=== PATIENT | female | born 1990 | race Two or more races ===

== ENCOUNTER 2022-03-03 08:14 | Emergency (ER) | payer SELFPAY ==
[~2022-03-03] VITALS: Ht 154.9 cm; Wt 63.0 kg
[2022-03-03] MEDS ORDERED: LIDOCAINE (700MG/PATCH) PATCH. TD ONE (08:45)
[2022-03-03] MEDS ORDERED: METHOCARBAMOL 750 MG TABLET PO PRN (08:45)
[2022-03-03] MEDS ORDERED: HYDROcodone/APAP 5/325MG 1 TAB TABLET PO ONE (08:45)
[2022-03-03] MEDS ORDERED: MORPHINE SULFATE 4 MG/ML INJ. IM ONE (08:45)
[2022-03-03] MEDS ORDERED: KETOROLAC 30 MG/ML VIAL. INJ ONE (09:00)
[2022-03-03 09:31] LABS: BASO % 0 % (0-3); EOS # 0.1 x10^3/uL (0.0-0.7); EOS % 1 % (0-3); HEMATOCRIT 44.5 % (36.0-47.0); HEMOGLOBIN 14.7 g/dL (12.0-15.5); LYMPH # 1.9 x10^3/uL (1.0-4.8); LYMPH % 24 % (24-48); MEAN CORPUSCULAR HEMOGLOBIN 30 pg (25-35); MEAN CORPUSCULAR HGB CONC 33 g/dL (31-37); MEAN CORPUSCULAR VOLUME 91 fL (79-100); MONO # 0.4 x10^3/uL (0.0-1.1); MONO % 6 % (0-9); NEUT # 5.4 x10^3/uL (1.8-7.7); NEUT % 69 % (31-73); PLATELET COUNT 307 x10^3/uL (140-400); RED BLOOD COUNT 4.91 x10^6/uL (3.50-5.40); RED CELL DISTRIBUTION WIDTH 14.8 % (11.5-14.5); WHITE BLOOD COUNT 7.9 x10^3/uL (4.0-11.0)
--- NOTE | 2022-03-03 10:06 | RAD ---
INDICATION: Reason: trauma, low back pain, / Spl. Instructions: / History: . COMPARISON: None. TECHNIQUE: Axial CT images obtained through the lumbar spine. One or more of the following individualized dose reduction techniques were utilized for this examinat ion: 1. Automated exposure control; 2. Adjustment of the mA and/or kV according to patient size; 3 . Use of iterative reconstruction technique. FINDINGS: No evidence of subluxation or dislocation. There is a couple of small ossific bodies seen adjacent to the inferior anterior endplates of L4 and L3 as a chronic appearance and could be congenital or secondary to old fracture. Minimal wedging of L1 vertebral body. Minimal degenerative changes the spine without central canal or neural foraminal stenosis. IMPRESSION: * No evidence of malalignment. * Minimal wedging of the L1 vertebral body. This is a very mild finding and would favor that this is congenital in nature or chronic unless the patient has point tenderness at this site to suggest a ve ry mild superior endplate compression fracture. Electronically signed by: Jf Bennett MD (03/03/2022 10:04 AM) [id number]
[2022-03-03 10:22] LABS: CALCIUM 8.6 mg/dL (8.5-10.1); CREATININE 0.8 mg/dL (0.6-1.0); GFR 82.6
[2022-03-03 10:28] LABS: ALBUMIN 3.5 g/dL (3.4-5.0); ALBUMIN/GLOBULIN RATIO 0.9 (1.0-1.7); MAGNESIUM 2.2 mg/dL (1.8-2.4); TOTAL BILIRUBIN 0.5 mg/dL (0.2-1.0); TOTAL PROTEIN 7.2 g/dL (6.4-8.2)
[2022-03-03] MEDS ORDERED: MORPHINE SULFATE 4 MG/ML INJ. IVP ONE (10:30)
[2022-03-03] MEDS ORDERED: KETOROLAC 30 MG/ML VIAL. IVP ONE (10:30)
[2022-03-03 10:37] LABS: PREG TEST PT QUAL NEGATIVE (NEG)
[2022-03-03 10:39] LABS: FREE T4 1.01 ng/dL (0.76-1.46); THYROID STIM HORMONE (TSH) 1.719 uIU/mL (0.358-3.74)
[2022-03-03 10:44] LABS: AMORPHOUS SEDIMENT,UR PRESENT /HPF; BACTERIA,URINE 0 /HPF (0-FEW); WBC,URINE OCC /HPF (0-4)
--- NOTE | 2022-03-03 11:01 | RAD ---
XR CHEST 1V History: Dizziness Comparison: None. Technique: AP radiograph of the chest. Findings: The lungs are adequately and symmetrically inflated. No airspace consolidation, pleural effusion or p neumothorax. The cardiomediastinal silhouette and pulmonary vasculature are within normal limits. No acute osseous abnormality. Soft tissues are unremarkable. Impression: 1. No acute cardiopulmonary process. Electronically signed by: Aldair Samaniego MD (03/03/2022 10:58 AM) [id number]
[2022-03-03] MEDS ORDERED: METH-562 PO (12:30)
[2022-03-03] MEDS ORDERED: LIDO700A21 TP (12:30)
[2022-03-03] MEDS ORDERED: IBUP-1007 PO (12:30)
[2022-03-03] MEDS ORDERED: ACET325T9 PO (12:31)
[2022-03-03 12:34] VITALS: BP 126/78
--- NOTE | 2022-03-03 19:10 | PHYS DOC ---
Past Medical History Past Medical History: No Pertinent History Past Surgical History: Smoking Status: Never Smoker Alcohol Use: Rarely General Adult EDM: Chief Complaint: BACK PAIN OR INJURY HPI: HPI: 31-year-old female, past medical history , otherwise healthy, presents status post accidental fall into a hole yesterday and complaining of low back pain 10/10 in severity. Denies saddle anesthesia, weakness, urinary retention or hesitancy or incontinence. Patient states this pain was so severe that she cannot ambulate to the restroom. Review of Systems: Review of Systems: Constitutional: Denies fever or chills. [] Eyes: Denies change in visual acuity. [] HENT: Denies nasal congestion or sore throat. [] Respiratory: Denies cough or shortness of breath. [] Cardiovascular: Denies chest pain or edema. [] GI: Denies abdominal pain, nausea, vomiting, bloody stools or diarrhea. [] : Denies dysuria. [] Musculoskeletal: Denies back pain or joint pain. [] Integument: Denies rash. [] Neurologic: Denies headache, focal weakness or sensory changes. [] Endocrine: Denies polyuria or polydipsia. [] Lymphatic: Denies swollen glands. [] Psychiatric: Denies depression or anxiety. [] Heart Score: C/O Chest Pain: No Risk Factors: Risk Factors: DM, Current or recent (<one month) smoker, HTN, HLP, family history of CAD, obesity. Risk Scores: Score 0 - 3: 2.5% MACE over next 6 weeks - Discharge Home Score 4 - 6: 20.3% MACE over next 6 weeks - Admit for Clinical Observation Score 7 - 10: 72.7% MACE over next 6 weeks - Early Invasive Strategies Current Medications: Current Medications Medications (Trade) Dose Ordered Sig/Los Start Time Stop Time Status Last Admin Dose Admin Acetaminophen/ Hydrocodone Bitart (Lortab 5/325) 1 tab 1X ONCE 03/03/22 08:45 03/03/22 08:51 DC 03/03/22 11:10 1 TAB Ketorolac Tromethamine (Toradol 30mg Vial) 30 mg 1X ONCE 03/03/22 10:30 03/03/22 10:31 DC 03/03/22 11:15 30 MG Lidocaine (Lidoderm) 1 patch 1X ONCE 03/03/22 08:45 03/03/22 08:51 DC 03/03/22 11:15 1 PATCH Methocarbamol (Robaxin) 750 mg ONCE PRN 03/03/22 08:45 03/03/22 12:57 DC 03/03/22 11:10 750 MG Morphine Sulfate (Morphine Sulfate) 4 mg 1X ONCE 03/03/22 10:30 03/03/22 10:31 DC 03/03/22 11:15 4 MG Allergies: Allergies: Allergies Coded Allergies Type Severity Reaction Last Updated Verified No Known Drug Allergies 03/03/22 No Physical Exam: PE: Constitutional: Anxious appearing, well developed, well nourished, no acute distress, non-toxic appearance. [] HENT: Normocephalic, atraumatic, bilateral external ears normal, oropharynx moist, no oral exudates, nose normal. [] Eyes: PERRLA, EOMI, conjunctiva normal, no discharge. [] Neck: Normal range of motion, no tenderness, supple, no stridor. [] Cardiovascular:Heart rate regular rhythm, no murmur [] Lungs & Thorax: Bilateral breath sounds clear to auscultation [] Abdomen: Bowel sounds normal, soft, no tenderness, no masses, no pulsatile masses. [] Skin: Warm, dry, no erythema, no rash. [] Back: Focal lumbar spinal tenderness, range of motion limited due to pain, no CVA tenderness. [] Extremities: No tenderness, no cyanosis, no clubbing, ROM intact, no edema. [] Neurologic: Alert and oriented X 3, normal motor function, normal sensory function, no focal deficits noted. [] Psychologic: Affect normal, judgement normal, mood normal. [] Current Patient Data: Labs: Laboratory Tests Test 03/03/22 09:15 03/03/22 09:38 03/03/22 09:42 03/03/22 09:55 White Blood Count 7.9 x10^3/uL (4.0-11.0) Red Blood Count 4.91 x10^6/uL (3.50-5.40) Hemoglobin 14.7 g/dL (12.0-15.5) Hematocrit 44.5 % (36.0-47.0) Mean Corpuscular Volume 91 fL (79-100) Mean Corpuscular Hemoglobin 30 pg (25-35) Mean Corpuscular Hemoglobin Concent 33 g/dL (31-37) Red Cell Distribution Width 14.8 % (11.5-14.5) H Platelet Count 307 x10^3/uL (140-400) Neutrophils (%) (Auto) 69 % (31-73) Lymphocytes (%) (Auto) 24 % (24-48) Monocytes (%) (Auto) 6 % (0-9) Eosinophils (%) (Auto) 1 % (0-3) Basophils (%) (Auto) 0 % (0-3) Neutrophils # (Auto) 5.4 x10^3/uL (1.8-7.7) Lymphocytes # (Auto) 1.9 x10^3/uL (1.0-4.8) Monocytes # (Auto) 0.4 x10^3/uL (0.0-1.1) Eosinophils # (Auto) 0.1 x10^3/uL (0.0-0.7) Basophils # (Auto) 0.0 x10^3/uL (0.0-0.2) Urine Collection Type Unknown Urine Color (Auto) Colorless Urine Turbidity Clear Urine pH (Auto) 6.5 (<5.0-8.0) Urine Specific Macy 1.009 (1.000-1.030) Urine Protein (Auto) Negative mg/dL (Negative) Urine Glucose (Auto)(UA) Negative mg/dL (Negative) Urine Ketones (Auto) Negative mg/dL (Negative) Urine Blood (Auto) Trace (Negative) Urine Nitrite Negative (Negative) Urine Bilirubin (Auto) Negative (Negative) Urine Urobilinogen (Auto) Normal mg/dL (Normal) Urine Leukocyte Esterase (Auto) Negative (Negative) Urine RBC 1-2 /HPF (0-2) Urine WBC Occ /HPF (0-4) Urine Squamous Epithelial Cells Few /LPF Urine Amorphous Sediment Present /HPF Urine Bacteria 0 /HPF (0-FEW) Urine Mucus Slight /LPF POC Urine HCG, Qualitative Hcg negative (Negative) Sodium Level 139 mmol/L (136-145) Potassium Level 4.0 mmol/L (3.5-5.1) Chloride Level 106 mmol/L (98-107) Carbon Dioxide Level 25 mmol/L (21-32) Anion Gap 8 (6-14) Blood Urea Nitrogen 12 mg/dL (7-20) Creatinine 0.8 mg/dL (0.6-1.0) Estimated GFR (Cockcroft-Gault) 82.6 BUN/Creatinine Ratio 15 (6-20) Glucose Level 105 mg/dL (70-99) H Calcium Level 8.6 mg/dL (8.5-10.1) Magnesium Level 2.2 mg/dL (1.8-2.4) Total Bilirubin 0.5 mg/dL (0.2-1.0) Aspartate Amino Transferase (AST) 23 U/L (15-37) Alanine Aminotransferase (ALT) 32 U/L (14-59) Alkaline Phosphatase 73 U/L (46-116) RZ-Xbm-T-Type Natriuretic Peptide 26 pg/mL (0-124) Total Protein 7.2 g/dL (6.4-8.2) Albumin 3.5 g/dL (3.4-5.0) Albumin/Globulin Ratio 0.9 (1.0-1.7) L Thyroid Stimulating Hormone (TSH) 1.719 uIU/mL (0.358-3.74) Free Thyroxine 1.01 ng/dL (0.76-1.46) Free Triiodothyronine (T3) pg/mL 2.74 pg/mL (2.18-3.98) Serum Test, Qualitative Negative (NEG) Laboratory Tests 03/03/22 09:15 Laboratory Tests 03/03/22 09:55 Vital Signs: Vital Signs Date Time Temp Pulse Resp B/P (MAP) Pulse Ox O2 Delivery O2 Flow Rate FiO2 03/03/22 12:34 64 18 126/78 (94) 100 Room Air 03/03/22 08:15 97.7 97.7 EKG: EKG: [] Radiology/Procedures: Radiology/Procedures: [] Course & Med Decision Making: Course & Med Decision Making Pertinent Labs and Imaging studies reviewed. (See chart for details) Additional Social History: PMD from non-affiliated facility. Patient Lives at home. Family History: Non-pertinent to today's complaint. Nursing Notes Reviewed Previous Medical Records requested via [facility] Web: Reviewed by me. PROCEDURE: PORTABLE CHEST 1V XR CHEST 1V Impression: 1. No acute cardiopulmonary process. PROCEDURE: CT LUMBAR SPINE WO CONTRAST IMPRESSION: * No evidence of malalignment. * Minimal wedging of the L1 vertebral body. This is a very mild finding and would favor that this is congenital in nature or chronic unless the patient has point tenderness at this site to suggest a very mild superior endplate compression fracture. EMERGENCY DEPARTMENT COURSE/ MEDICAL DECISION MAKING: I examined the patient, evaluated and addressed patient's chief complaint. The patient was treated with lidocaine patch, Robaxin, Toradol, morphine, Strabane. Rule out fracture, dislocation, herniated disc; lower suspicion for cauda equina, cord compression. On re-assessment, patient feels much better. And is able to ambulate with a steady gait. Found to have minimal wedging of the L1 vertebral body, very mild superior endplate compression fracture. Per neurosurgery consultation, does not need back brace or neurosurgery follow- up. Routine PMD follow-up and pain medicine will suffice. The patient understands that todays Emergency Department evaluation does not represent a comprehensive medical workup, and it is impossible to diagnose all possible illnesses from a single Emergency Department visit. The patient verbalized understanding that it is absolutely necessary to have follow-up with regular primary care physician within 1-2 days for more detailed workup and continued exam. I explained the findings and plan to the patient, who expressed verbal understanding and agreed with plan for discharge and follow up. The patient was given after care instructions and welcomed to return to the ED for re-evaluation in 8-12 hours, especially for any new or worsening symptoms. Patient's blood pressure was elevated (>120/80) but appears stable without evidence of end organ damage, malignant hypertension, hypertensive emergency or urgency. The patient was counseled about the risks of hypertension and urged to pursue outpatient monitoring and therapy within a week with their primary care physician. The patient was stable at the time of discharge. DIAGNOSTIC IMPRESSION: 1. L1 Mild superior endplate compression fracture 2. Fall 3. Low back pain DISPOSITION: Disposition: Discharge Home. Condition: Improved Follow-Up: PMD Prescriptions: Tylenol, ibuprofen, Robaxin, lidocaine patch Return to the Emergency Department for new or worsening symptoms. Dragon Disclaimer: Dragon Disclaimer: This electronic medical record was generated, in whole or in part, using a voice recognition dictation system. Departure Departure Impression: Primary Impression: Fall Additional Impression: Fracture of L1 vertebra Disposition: HOME / SELF CARE / HOMELESS Condition: STABLE Patient Instructions: Lumbar Fracture, Back Pain, Adult Additional Instructions: Por favor, john un seguimiento con horta mdico de atencin primaria. Scripts Acetaminophen (TYLENOL) 325 Mg Tablet 325 MG PO Q4HRS PRN for PAIN, #30 TAB Prov: HAZEL RICKETTS MD 03/03/22 Lidocaine (Lidocaine PATCH ) 1 Each Adh..patch 1 EACH TP DAILY for FOR LOCAL PAIN for 20 Days, #20 PATCH REMOVE AFTER 12 HOURS Prov: HAZEL RICKETTS MD 03/03/22 Ibuprofen (IBUPROFEN) 600 Mg Tablet 600 MG PO PRN Q6HRS PRN for INFLAMMATION, #20 TAB Prov: HAZEL RICKETTS MD 03/03/22 Methocarbamol (METHOCARBAMOL) 750 Mg Tablet 750 MG PO BID for 15 Days, #30 TAB Prov: HAZEL RICKETTS MD 03/03/22 HAZEL RICKETTS MD March 03, 2022 19:10
== END 2022-03-03 12:47 | disposition home or self-care (01) ==
LOC: ER 08:14
DX: S32.019A Unspecified fracture of first lumbar vertebra, initial encounter for closed fracture (principal); W17.2XXA Fall into hole, initial encounter; Y93.89 Activity, other specified; Y92.89 Other specified places as the place of occurrence of the external cause; Y99.8 Other external cause status
CPT/HCPCS: 36415; 71045; 72131; 80053; 81001; 81025; 83735; 83880; 84439; 84443; 84481; 84703; 85025; 96374; 96375; 99285; J1885; J2270